=== PATIENT | male | born 1975 | race African-American/Black ===

== ENCOUNTER 2017-09-30 16:58 | Emergency (ER) | payer OTHER ==
[2017-09-30] MEDS: HYDROcodone/APAP 5/325MG 1 TAB TABLET PO ONE (17:43)
[2017-09-30] MEDS: INSULIN ASPART 300 UNITS/3 ML INSULN.PEN SQ ONE (17:45)
[2017-09-30] MEDS ORDERED: HYDR-971 PO (17:57)
[2017-09-30] MEDS ORDERED: CYCL-331 PO (17:57)
--- NOTE | 2017-09-30 17:58 | PHYS DOC ---
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 Patient states he felt a pop in his back 2 weeks ago and had back pain that gradually moved to left side of his back and hip area. Patient state for the last few days he had severe pain in his posterior of his high that getting worse with movement. Patient denies focal neuro deficit, fever and chills, urinary and bowel incontinence, history of back pain. Patient has history of diabetes mellitus and states she seen by his physician in because of elevation of blood pressure is not taking his medication but doesn't know the name of medicine. He does not check his blood sugar daily. Review of Systems Review of Systems Constitutional: Denies fever or chills [] Eyes: Denies change in visual acuity, redness, or eye pain [] HENT: Denies nasal congestion or sore throat [] Respiratory: Denies cough or shortness of breath [] Cardiovascular: No additional information not addressed in HPI [] GI: Denies abdominal pain, nausea, vomiting, bloody stools or diarrhea [] : Denies dysuria or hematuria [] Musculoskeletal: Reports back pain and extremity pain Integument: Denies rash or skin lesions [] Neurologic: Denies headache, focal weakness or sensory changes [] Endocrine: Denies polyuria or polydipsia [] All other systems were reviewed and found to be within normal limits, except as documented in this note. Current Medications Current Medications Current Medications Medications (Trade) Dose Ordered Sig/Marky Start Time Stop Time Status Last Admin Dose Admin Acetaminophen/ Hydrocodone Bitart (Lortab 5/325) 1 tab 1X ONCE 09/30/17 17:45 09/30/17 17:46 DC 09/30/17 17:43 1 TAB Insulin Aspart (NovoLOG) 8 units 1X ONCE 09/30/17 17:45 09/30/17 17:46 DC Allergies Allergies Allergies Coded Allergies Type Severity Reaction Last Updated Verified No Known Drug Allergies 09/30/17 No Physical Exam Physical Exam Constitutional: Well developed, well nourished, moderate distress, non-toxic appearance. [] HENT: Normocephalic, atraumatic, bilateral external ears normal, oropharynx moist, no oral exudates, nose normal. [] Eyes: PERRLA, EOMI, conjunctiva normal, no discharge. [] Neck: Normal range of motion, no tenderness, supple, no stridor. [] Cardiovascular:Heart rate regular rhythm, no murmur [] Lungs & Thorax: Bilateral breath sounds clear to auscultation [] Abdomen: Bowel sounds normal, soft, no tenderness, no masses, no pulsatile masses. [] Skin: Warm, dry, no erythema, no rash. [] Back: No deformity or midline tenderness, limited range of motion with pain, no CVA tenderness Extremities: No tenderness, no cyanosis, no clubbing, ROM intact, no edema. [] Neurologic: Alert and oriented X 3, normal motor function, normal sensory function, no focal deficits noted. [] Psychologic: Anxious Current Patient Data Vital Signs Vital Signs Date Time Temp Pulse Resp B/P (MAP) Pulse Ox O2 Delivery O2 Flow Rate FiO2 09/30/17 17:43 18 98 09/30/17 17:15 98.1 114 Room Air Lab Results Laboratory Tests Test 09/30/17 17:23 Glucose (Fingerstick) 373 mg/dL (70-99) H EKG EKG [] Radiology/Procedures Radiology/Procedures [] Course & Med Decision Making Course & Med Decision Making Pertinent Labs reviewed. (See chart for details) patient had blood sugar of 373 but refused to take insulin. Patient stated to follow with his primary care physician tomorrow regarding uncontrolled diabetes mellitus. discharge: I've spoken with the patient and/or caregivers. I've explained the patient's condition, diagnosis and treatment plan based on information available to me at this time. I've answered the patient's and/or caregivers questions and addressed any concerns. The patient and/or caregivers have a good understanding the patient's diagnosis, condition and treatment plan as can be expected at this point. Vital signs have been stabilized. The patient's condition is stable for discharge from the emergency department. The patient will pursue further outpatient evaluation with her primary care provider or other designated consulting physician as outlined in the discharge instructions. Patient and/or caregivers are agreeable to this plan of care and follow-up instructions have been explained in detail. The patient and/or caregivers have received these instructions in written format and expressed understanding of these discharge instructions. The patient and her caregivers are aware that if any significant change in condition or worsening of symptoms should prompt him to immediately return to this of the closest emergency department. If an emergent department is not readily available I would encourage him to call 911. [] Philippe Disclaimer Philippe Disclaimer This electronic medical record was generated, in whole or in part, using a voice recognition dictation system. Departure Departure: Impression: Primary Impression: Sciatic leg pain Additional Impression: Uncontrolled diabetes mellitus Disposition: HOME, SELF-CARE Condition: IMPROVED Referrals: DINA SANTOS (PCP) Patient Instructions: 1800 Calorie Diet for Diabetes Meal Planning, Diabetes Meal Planning Guide, Sciatica Additional Instructions: Apply ice on the affected area Follow-up with your primary care physician in 3-5 days for uncontrolled diabetes mellitus Return to emergency room if not getting better Scripts Hydrocodone Bit/Acetaminophen (NORCO 5-325 TABLET) 1 Each Tablet 1 TAB PO PRN Q6HRS Y for PAIN, #14 TAB 0 Refills Prov: ANI RAMÍREZ MD 09/30/17 Cyclobenzaprine Hcl (CYCLOBENZAPRINE HCL) 10 Mg Tablet 1 TAB PO TID, #30 TAB Prov: ANI RAMÍREZ MD 09/30/17 Problem Qualifiers ANI RAMÍREZ MD Sep 30, 2017 17:58
[2017-09-30 18:00] VITALS: BP 157/105
== END 2017-09-30 18:10 | disposition home or self-care (01) ==
LOC: ER 16:58
DX: M54.32 Sciatica, left side (principal); E11.65 Type 2 diabetes mellitus with hyperglycemia; I10 Essential (primary) hypertension
CPT/HCPCS: 82947; 99283; J1815

== ENCOUNTER 2020-08-24 09:03 | Emergency (ER) | payer BC, OTHER ==
[~2020-08-24] VITALS: Ht 180.3 cm; Wt 91.0 kg
[~2020-08-24 09:03] MED LIST: CYCL-331 PO; HYDR-3165 PO
--- NOTE | 2020-08-24 09:40 | PHYS DOC ---
Past History Past Medical History: Diabetes, Hypertension Past Surgical History: No Surgical History Alcohol Use: Occasionally Drug Use: None General Adult EDM: Chief Complaint: elevated blood pressure HPI: HPI: 45-year-old male presents emergency department today with elevated blood pressure at home recently diagnosed with Covid who presents wanting to make his oxygen levels were okay. At home he had a couple of low numbers in the low 90s 92%-91%. Hit the patient feels great otherwise he does not have shortness of breath. He does not have any chest pain. He denies fevers or headache or nuchal rigidity. He does not have a cough. Onset today. Location generalized. Duration constant. No alleviating factors. ED course: 45-year-old male presenting with elevated blood pressure at home with low 90 oxygen saturations recently diagnosed with Covid. On arrival he is tachycardic but his oxygen levels are within normal limits. He is breathing comfortably with normal physical exam. X-rays obtained which are unremarkable. Given his elevated heart rate, I had a long discussion with the patient about the possibility of pulmonary embolism. He has not had a surgery within the past 4 months. He did have a back surgery about 7 months ago. He denies any recent unilateral leg swelling or unilateral pain. He denies a history of DVT or PE. He denies hemoptysis or leg swelling. I offered investigation into this including blood work and D-dimer/CT angio. The patient is not wanting to be evaluated for this and is wanting to go home he reports feeling fine denying any chest pain and is not short of breath. He understands the risks of and disability and pain if he were to have a blood clot and that there would be a treatment available to him if we were to discover that he had this illness. Offered for him to be able to come back if he had any symptoms or if he changes mind for any reason. He was able to ambulate on his own accord without any distress when he left. Allergies: Allergies: Allergies Coded Allergies Type Severity Reaction Last Updated Verified No Known Drug Allergies 09/30/17 No Physical Exam: PE: Constitutional: Well developed, well nourished, no acute distress, non-toxic appearance. [] HENT: Normocephalic, atraumatic, bilateral external ears normal, oropharynx moist, no oral exudates, nose normal. [] Eyes: PERRLA, EOMI, conjunctiva normal, no discharge. [] Neck: Normal range of motion, no tenderness, supple, no stridor. [] Cardiovascular:tachycardic rate w/ regular rhythm, no murmur [] Lungs & Thorax: Bilateral breath sounds clear to auscultation [] Abdomen: Bowel sounds normal, soft, no tenderness, no masses, no pulsatile masses. [] Skin: Warm, dry, no erythema, no rash. [] Back: No tenderness, no CVA tenderness. [] Extremities: No tenderness, no cyanosis, no clubbing, ROM intact, no edema. [] Neurologic: Alert and oriented X 3, normal motor function, normal sensory fu nction, no focal deficits noted. [] Psychologic: Affect normal, judgement normal, mood normal. [] Current Patient Data: Vital Signs: Vital Signs Date Time Temp Pulse Resp B/P (MAP) Pulse Ox O2 Delivery O2 Flow Rate FiO2 08/24/20 09:34 98.4 127 16 170/110 (130) 99 Room Air EKG: EKG: [] Radiology/Procedures: Radiology/Procedures: [] Heart Score: Risk Factors: Risk Factors: DM, Current or recent (<one month) smoker, HTN, HLP, family history of CAD, obesity. Risk Scores: Score 0 - 3: 2.5% MACE over next 6 weeks - Discharge Home Score 4 - 6: 20.3% MACE over next 6 weeks - Admit for Clinical Observation Score 7 - 10: 72.7% MACE over next 6 weeks - Early Invasive Strategies Course & Med Decision Making: Course & Med Decision Making Pertinent Labs and Imaging studies reviewed. (See chart for details) [] Dragon Disclaimer: Dragon Disclaimer: This electronic medical record was generated, in whole or in part, using a voice recognition dictation system. Departure Departure: Impression: Primary Impression: Cough Disposition: 01 DC HOME SELF CARE/HOMELESS Condition: STABLE Referrals: DINA SANTOS (PCP) Patient Instructions: Medical Screening Exam ADAMA NAVA MD Aug 24, 2020 09:40
--- NOTE | 2020-08-24 10:34 | RAD ---
AP chest. HISTORY: Cough, short of breath AP view was taken of the chest. Patient's not taken a deep inspiration. There is mild linear atelecta sis near the left costophrenic angle. There are no other infiltrates. There is no effusion. The heart is normal in size. IMPRESSION: 1. Poor inspiration. 2. Left base linear atelectasis without other infiltrates. Electronically signed by: Constantin Tsang MD (08/24/2020 10:31 AM) [id number]
[2020-08-24 10:46] VITALS: BP 153/108
== END 2020-08-24 10:51 | disposition home or self-care (01) ==
LOC: ER 09:03
DX: R05 Cough (principal); I10 Essential (primary) hypertension; E11.9 Type 2 diabetes mellitus without complications
CPT/HCPCS: 71045; 99283